=== PATIENT | female | born 1990 | race American Indian/Alaskan Native ===

== ENCOUNTER 2017-04-06 13:37 | Emergency (ER) | payer MEDICAID ==
[2017-04-06 14:24] LABS: Basophils % (Auto) 0.3 % (0.0-1.8); Eosinophils % (Auto) 0.2 % (0.0-4.3); Hematocrit 39.5 % (30.3-42.9); Hemoglobin 13.5 gm/dl (10.1-14.3); Mean Corpuscular HGB Conc 34 % (30-34); Mean Corpuscular Hemoglobin 31 pg (28-32); Mean Corpuscular Volume 90 fl (79-97); Platelet Count 180 K/mm3 (140-440); Red Blood Count 4.41 M/mm3 (3.65-5.03); Red Cell Distribution Width 14.5 % (13.2-15.2); White Blood Count 9.6 K/mm3 (4.5-11.0)
[2017-04-06 14:46] LABS: Alanine Aminotransferase 12 units/L (7-56); Albumin 3.9 g/dL (3.9-5); Albumin/Globulin Ratio 1.2 %; Alkaline Phosphatase 53 units/L (35-129); Anion Gap 15 mmol/L; BUN/Creatinine Ratio 18; Blood Urea Nitrogen 7 mg/dL (7-17); Calcium 8.7 mg/dL (8.4-10.2); Carbon Dioxide 24 mmol/L (22-30); Chloride 102.7 mmol/L (98-107); Glucose 105 mg/dL (65-100); Lipase 42 units/L (13-60); Potassium 3.7 mmol/L (3.6-5.0); Sodium 138 mmol/L (137-145); Total Protein 7.1 g/dL (6.3-8.2)
[2017-04-06 17:07] LABS: Bilirubin,Urine NEG (Negative); Blood,Urine NEG (Negative); Ketones,Urine TR mg/dL (Negative); Leukocyte Esterase,Urine NEG (Negative); Mucus,Urine FEW /HPF; Nitrite,Urine NEG (Negative); Protein,Urine <15 mg/dL mg/dL (Negative)
--- NOTE | 2017-04-06 19:15 | Emergency Department Report ---
HPI - General Chief Complaint: Abdominal Pain Time Seen by Provider: 04/06/17 18:57 - HPI HPI: Room 37 The patient is a 26-year-old female presenting with a chief complaint of abdominal pain. The patient states for the past 2-3 weeks she has had intermittent pain in the lower abdomen described as a pressure in nature. Patient admits to occasional dizziness associated 1 episode of vomiting. The patient states her last cycle occurred at the end of February which she's had vaginal spotting for the past 2-3 weeks. The patient states she took a test at home and it was negative Location: Lower abdomen Duration: 2-3 Weeks Quality: Pressure Severity: Moderate Modifying factors: [see above] Context: [see above] Mode of transportation: Unknown ED Past Medical Hx - Past Medical History Previous Medical History?: No - Surgical History Past Surgical History?: No - Family History Family history: no significant - Social History Smoking Status: Current Some Day Smoker Substance Use Type: Marijuana, Other - Medications Home Medications: Home Medications Medication Instructions Recorded Confirmed Last Taken Type metroNIDAZOLE [Flagyl TAB] 500 mg PO Q12H #20 tablet 07/15/14 Unknown Rx Vit Calc,Iron,Folic 1 each PO QDAY #90 tablet 04/06/17 Unknown Rx [ Vitamins] ED Review of Systems ROS: Stated complaint: ABDOMINAL PAIN/DIZZINESS Other details as noted in HPI Comment: All other systems reviewed and negative Constitutional: denies: chills, fever Eyes: denies: eye pain, eye discharge, vision change ENT: denies: ear pain, throat pain Respiratory: denies: cough, shortness of breath, wheezing Cardiovascular: denies: chest pain, palpitations Endocrine: no symptoms reported Gastrointestinal: abdominal pain, nausea, vomiting Genitourinary: abnormal menses Musculoskeletal: denies: back pain, joint swelling, arthralgia Skin: denies: rash, lesions Neurological: denies: headache, weakness, paresthesias Psychiatric: denies: anxiety, depression Hematological/Lymphatic: denies: easy bleeding, easy bruising Physical Exam - Physical Exam Vital Signs: Vital Signs 04/06/17 04/06/17 04/06/17 14:04 16:55 16:56 Temperature 98.7 F 97.7 F Pulse Rate 64 76 Respiratory 18 18 18 Rate Blood Pressure 100/59 Blood Pressure 111/53 [Left] O2 Sat by Pulse 100 98 98 Oximetry Physical Exam: GENERAL: The patient is well-developed well-nourished female lying on stretcher not appearing to be in acute distress. [] HEENT: Normocephalic. Atraumatic. Extraocular motions are intact. Patient has moist mucous membranes. NECK: Supple. Trachea midline CHEST/LUNGS: Clear to auscultation. There is no respiratory distress noted. HEART/CARDIOVASCULAR: Regular. There is no tachycardia. There is no gallop rub or murmur. ABDOMEN: Abdomen is soft, with mild discomfort to palpation in the right lower quadrant and suprapubic region. Patient has normal bowel sounds. There is no abdominal distention. SKIN: There is no rash. There is no edema. There is no diaphoresis. NEURO: The patient is awake, alert, and oriented. The patient is cooperative. The patient has normal speech MUSCULOSKELETAL: There is no evidence of acute injury. ED Course Vital Signs 04/06/17 04/06/17 04/06/17 14:04 16:55 16:56 Temperature 98.7 F 97.7 F Pulse Rate 64 76 Respiratory 18 18 18 Rate Blood Pressure 100/59 Blood Pressure 111/53 [Left] O2 Sat by Pulse 100 98 98 Oximetry ED Medical Decision Making - Lab Data Result diagrams: 04/06/17 14:14 04/06/17 14:14 Laboratory Tests 04/06/17 04/06/17 04/06/17 14:14 14:14 14:14 WBC 9.6 RBC 4.41 Hgb 13.5 Hct 39.5 MCV 90 MCH 31 MCHC 34 RDW 14.5 Plt Count 180 Lymph % (Auto) 18.9 Bay % (Auto) 3.8 Eos % (Auto) 0.2 Baso % (Auto) 0.3 Lymph # 1.8 Bay # 0.4 Eos # 0.0 Baso # 0.0 Seg Neutrophils % 76.8 H Seg Neutrophils # 7.4 Sodium 138 Potassium 3.7 Chloride 102.7 Carbon Dioxide 24 Anion Gap 15 BUN 7 Creatinine 0.4 L Estimated GFR > 60 BUN/Creatinine Ratio 18 Glucose 105 H Calcium 8.7 Total Bilirubin 0.40 AST 18 ALT 12 Alkaline Phosphatase 53 Total Protein 7.1 Albumin 3.9 Albumin/Globulin Ratio 1.2 Lipase 42 HCG, Quant 08921 H Urine Color Urine Turbidity Urine pH Ur Specific [place] Urine Protein Urine Glucose (UA) Urine Ketones Urine Blood Urine Nitrite Ur Reducing Substances Urine Bilirubin Urine Ictotest Urine Urobilinogen Ur Leukocyte Esterase Urine WBC (Auto) Urine RBC (Auto) U Epithel Cells (Auto) Urine Mucus Urine HCG, Qual 04/06/17 16:55 WBC RBC Hgb Hct MCV MCH MCHC RDW Plt Count Lymph % (Auto) Bay % (Auto) Eos % (Auto) Baso % (Auto) Lymph # Bay # Eos # Baso # Seg Neutrophils % Seg Neutrophils # Sodium Potassium Chloride Carbon Dioxide Anion Gap BUN Creatinine Estimated GFR BUN/Creatinine Ratio Glucose Calcium Total Bilirubin AST ALT Alkaline Phosphatase Total Protein Albumin Albumin/Globulin Ratio Lipase HCG, Quant Urine Color Yellow Urine Turbidity Clear Urine pH 6.0 Ur Specific [place] 1.023 Urine Protein <15 mg/dl Urine Glucose (UA) Neg Urine Ketones Tr Urine Blood Neg Urine Nitrite Neg Ur Reducing Substances Not Reportable Urine Bilirubin Neg Urine Ictotest Not Reportable Urine Urobilinogen 2.0 Ur Leukocyte Esterase Neg Urine WBC (Auto) 1.0 Urine RBC (Auto) 2.0 U Epithel Cells (Auto) 1.0 Urine Mucus Few Urine HCG, Qual Positive A - Radiology Data Radiology results: report reviewed (pelvic ultrasound), image reviewed (pelvic ultrasound) Pelvic ultrasound (read by radiologist)- heart rate 161 bpm. Single intrauterine gestation at 14 weeks 1 day. EDC 10/04/2017 - Differential Diagnosis , ectopic , threatened , spontaneous , mi Critical care attestation.: If time is entered above; I have spent that time in minutes in the direct care of this critically ill patient, excluding procedure time. ED Disposition Clinical Impression: Threatened Disposition: DC-01 TO HOME OR SELFCARE Is pt being admited?: No Does the pt Need Aspirin: No Condition: Stable Instructions: Abdominal Pain (ED), Threatened Miscarriage (ED) Additional Instructions: Return to the emergency department immediately should you develop worsening symptoms, fever, inability to tolerate food or liquid or any other concerns. Prescriptions: Vit Calc,Iron,Folic [ Vitamins] 1 each PO QDAY #90 tablet Referrals: [facility] [Provider Group] - [place] Time of Disposition: 21:59
--- NOTE | 2017-04-06 21:54 | Ultrasound Report ---
FINAL REPORT PROCEDURE: US OB \T\gt; = 14 WEEKS FETUS TECHNIQUE: Real-time transabdominal sonography of the uterus, placenta, amniotic fluid, adnexa, and fetus was performed with image documentation. Measurements were obtained to determine age/size. M-mode Doppler was used to document heartbeat. CPT 47394 HISTORY: abdominal pain, COMPARISON: No prior studies are available for comparison. FINDINGS: ADDITIONAL GESTATION: None. GENERAL: IUP: Single living intrauterine . Position: Cephalic Placental position: Anterior grade 0, without previa. Amniotic fluid volume: Normal. MATERNAL: Uterus: Within normal limits. Cervical length: 3.9 cm. Internal Os: Closed. FETUS: Heart rate and rhythm: 161 BPM, Regular. MEASUREMENTS: BPD: 2.5 centimeters consistent 14 weeks 2 days HC: 9.6 consistent 14 week 3 day AC: 8.5 consistent 14 weeks 6 days FL: 1.3 consistent 13 weeks 6 days Mean Gestational Age: 14 week 1 day Ratio biometry: HC AC ratio 1.1. Cephalic index 82.2 FL BPD 52.6 FL HC 13.7 FL AC 15.4 Estimated Due Date (earliest scan): 10/04/2017 IMPRESSION: Single intrauterine gestation at 14 week 1 day. Estimated due date: 10/04/2017.
--- NOTE | 2017-04-06 21:57 | Ultrasound Report ---
FINAL REPORT PROCEDURE: US OB TRANSVAGINAL TECHNIQUE: Real-time transvaginal sonography of the uterus, placenta, amniotic fluid, adnexa, and fetus was performed with image documentation. Measurements were obtained to determine age/size. M-mode Doppler was used to document heartbeat. CPT 16966 HISTORY: abdominal pain, COMPARISON: Complete OB ultrasound today FINDINGS: Single viable IUP 14 week 1 day age. Heart rate 161 beats per minute. Transvaginal approach used. No visible adnexal masses depicted Estimated delivery date: 10/04/2017 Comment: Complete anatomic survey at 18-20 weeks suggested. IMPRESSION: 1. Single living intrauterine gestation at approximately 14 week 1 day 2. EDC by US 10/04/2017.
[2017-04-06 22:05] VITALS: BP 125/99
== END 2017-04-06 22:07 | disposition home or self-care (01) ==
LOC: ED 13:37
DX: O20.0 Threatened abortion (principal); F17.200 Nicotine dependence, unspecified, uncomplicated; F12.10 Cannabis abuse, uncomplicated
CPT/HCPCS: 36415; 76805; 76817; 80053; 81001; 81025; 83690; 84702; 85025

== ENCOUNTER 2021-01-03 15:21 | Emergency (ER) | payer OTHER, MEDICAID ==
--- NOTE | 2021-01-03 16:24 | Emergency Department Report ---
Blank Doc - Documentation Documentation: 30-year-old female that presents with RLQ pain with nausea. Denies any vomiti ng. Exam: RLQ tenderness 1- This is a initial triage assessment/medical screening only. Full assessment and work-up will be completed once the patient is in proper hospital gown, ED bed and in a private room setting. This initial assessment/diagnostic orders/clinical plan/ treatment(s) is/are subject to change based on pt's health status, clinical progression and re-assessment by fellow clinical providers in the ED. Further treatment and workup at subsequent clinical providers discretion. Patient/guardians urged not to elope from ED as their condition may be serious if not clinically assessed and managed. 2-labs/UA
[2021-01-03 17:30] LABS: Basophils % (Auto) 0.3 % (0.0-1.8); Eosinophils % (Auto) 0.3 % (0.0-4.3); Hematocrit 42.8 % (30.3-42.9); Hemoglobin 13.8 gm/dl (10.1-14.3); Lymphocytes # (Auto) 2.6 K/mm3 (1.2-5.4); Mean Corpuscular HGB Conc 32 % (30-34); Mean Corpuscular Volume 89 fl (79-97); Monocytes # (Auto) 0.4 K/mm3 (0.0-0.8); Monocytes % (Auto) 5.1 % (0.0-7.3); Platelet Count 251 K/mm3 (140-440); Red Blood Count 4.78 M/mm3 (3.65-5.03); Red Cell Distribution Width 15.4 % (13.2-15.2)
[2021-01-03 17:49] LABS: Alanine Aminotransferase 12 units/L (7-56); Albumin 4.6 g/dL (3.9-5); Blood Urea Nitrogen 10 mg/dL (7-17); Calcium 9.5 mg/dL (8.4-10.2); Hemolysis Index 2
[2021-01-03 18:02] LABS: BUN/Creatinine Ratio 17
--- NOTE | 2021-01-04 01:02 | Cat Scan Report ---
CT ABDOMEN AND PELVIS WITH CONTRAST INDICATION / CLINICAL INFORMATION: RLQ abdominal pain. TECHNIQUE: Axial CT images were obtained through the abdomen and pelvis after 75 cc of Omnipaque [address] scans at this location are performed using CT dose reduction for ALARA by means of automated exposure control. COMPARISON: None available. FINDINGS: LOWER CHEST: No significant abnormality. LIVER: No significant abnormality. GALLBLADDER: No significant abnormality. BILE DUCTS: No significant abnormality. PANCREAS: No significant abnormality. SPLEEN: No significant abnormality. ADRENALS: No significant abnormality. RIGHT KIDNEY / URETER: No significant abnormality. LEFT KIDNEY / URETER: No significant abnormality. STOMACH / SMALL BOWEL: No significant abnormality. COLON: No significant abnormality. APPENDIX: Not visualized. PERITONEUM: No free fluid. No free air. No fluid collection. LYMPH NODES: No significant adenopathy. AORTA / ARTERIES: No significant abnormality. IVC / VEINS: No significant abnormality. URINARY BLADDER: No significant abnormality. REPRODUCTIVE ORGANS: No significant abnormality. There is a small cyst in the left ovary. ADDITIONAL FINDINGS: None. SKELETAL SYSTEM: No significant abnormality. IMPRESSION: 1. There is no obstruction, inflammation, or free air. There are no abnormal fluid collections. 2. The appendix is not visualized. Signer Name: Joe Baker MD Signed: 01/04/2021 12:57 AM Workstation Name: [id number]
--- NOTE | 2021-01-04 02:16 | Emergency Department Report ---
HPI - General Chief Complaint: Abdominal Pain Time Seen by Provider: 01/03/21 16:23 - HPI HPI: 30-year-old female presents complaining of bilateral lower abdominal pain since yesterday. She says that it has been intermittent lasting seconds to minutes at a time. It feels similar to menstrual cramping but her LMP was on December 21. It occurs on either side or in the middle and there is no pattern to it. She does say that she has had some discomfort with urination over that period of time. She denies any significant vaginal discharge, pain, lesions, or bleeding. She also denies any associated fever/chills, headache, vision change, back pain, chest pain, shortness of breath, nausea/vomiting, or any other complaints. There are no known aggravating or alleviating factors. She has not tried anything for her symptoms. ED Past Medical Hx - Past Medical History Previous Medical History?: No - Surgical History Past Surgical History?: No - Social History Smoking Status: Current Every Day Smoker Substance Use Type: Marijuana - Medications Home Medications: Home Medications Medication Instructions Recorded Confirmed Last Taken Type metroNIDAZOLE [Flagyl TAB] 500 mg PO Q12H #20 tablet 07/15/14 Unknown Rx Vit Calc,Iron,Folic 1 each PO QDAY #90 tablet 04/06/17 Unknown Rx [ Vitamins] ED Review of Systems ROS: Stated complaint: LOWER ABDOMINAL PAIN Other details as noted in HPI Constitutional: denies: chills, fever Eyes: denies: eye pain, vision change ENT: denies: throat pain, congestion Respiratory: denies: cough, shortness of breath Cardiovascular: denies: chest pain, palpitations, syncope Gastrointestinal: abdominal pain. denies: nausea, vomiting, diarrhea, constipation Genitourinary: dysuria, frequency. denies: discharge, abnormal menses Musculoskeletal: denies: back pain, joint swelling Skin: denies: rash Neurological: denies: headache, weakness, numbness Physical Exam - Physical Exam Vital Signs: Vital Signs 01/03/21 01/03/21 16:19 16:20 Temperature 97.9 F 97.9 F Pulse Rate 60 60 Respiratory 18 18 Rate Blood Pressure 106/64 Blood Pressure 106/64 [Right] O2 Sat by Pulse 100 100 Oximetry Physical Exam: GENERAL: Well-developed skinny young female. No acute distress HEAD: Normocephalic. No obvious signs of trauma. ENT: Moist mucous membranes. EYES: Extraocular movements are intact. Pupils are equal round and reactive to light bilaterally NECK: Supple. Full ROM is intact. Trachea is midline. LUNGS: Nonlabored breathing. Equal chest rise bilaterally. Clear to auscultation bilaterally. CARDIOVASCULAR: Regular rate and rhythm. No murmurs or rubs. VASCULAR: Cap refill < 2 seconds ABDOMEN: Abdomen is soft and nondistended. There is no significant tenderness, guarding or rebound. SKIN: Skin is warm and dry NEURO: Patient is awake, alert, and oriented. tobacco checkout clerk II-XII grossly intact. No focal deficits. Normal motor and sensory exam throughout. Normal speech. MUSCULOSKELETAL: No obvious deformities. No significant tenderness. Normal ROM throughout. BACK/SPINE: No midline tenderness or step-offs of the C/T/L spine. No costovertebral angle tenderness. ED Course Vital Signs 01/03/21 01/03/21 16:19 16:20 Temperature 97.9 F 97.9 F Pulse Rate 60 60 Respiratory 18 18 Rate Blood Pressure 106/64 Blood Pressure 106/64 [Right] O2 Sat by Pulse 100 100 Oximetry ED Medical Decision Making - Lab Data Result diagrams: 01/03/21 17:04 01/03/21 17:04 Lab Results 01/03/21 01/03/21 01/03/21 Range/Units 17:04 17:04 17:04 WBC 8.3 (4.5-11.0) K/mm3 RBC 4.78 (3.65-5.03) M/mm3 Hgb 13.8 (10.1-14.3) gm/dl Hct 42.8 (30.3-42.9) % MCV 89 (79-97) fl MCH 29 (28-32) pg MCHC 32 (30-34) % RDW 15.4 H (13.2-15.2) % Plt Count 251 (140-440) K/mm3 Lymph % (Auto) 31.0 (13.4-35.0) % [place] % (Auto) 5.1 (0.0-7.3) % Eos % (Auto) 0.3 (0.0-4.3) % Baso % (Auto) 0.3 (0.0-1.8) % Lymph # (Auto) 2.6 (1.2-5.4) K/mm3 [place] # (Auto) 0.4 (0.0-0.8) K/mm3 Eos # (Auto) 0.0 (0.0-0.4) K/mm3 Baso # (Auto) 0.0 (0.0-0.1) K/mm3 Seg Neutrophils % 63.3 (40.0-70.0) % Seg Neutrophils # 5.2 (1.8-7.7) K/mm3 Sodium 138 (137-145) mmol/L Potassium 4.2 (3.6-5.0) mmol/L Chloride 102.1 (98-107) mmol/L Carbon Dioxide 29 (22-30) mmol/L Anion Gap 11 mmol/L BUN 10 (7-17) mg/dL Creatinine 0.6 (0.6-1.2) mg/dL Estimated GFR > 60 ml/min BUN/Creatinine Ratio 17 % Glucose 119 H (65-100) mg/dL Calcium 9.5 (8.4-10.2) mg/dL Total Bilirubin 0.40 (0.1-1.2) mg/dL AST 20 (5-40) units/L ALT 12 (7-56) units/L Alkaline Phosphatase 77 (35-129) units/L Total Protein 7.3 (6.3-8.2) g/dL Albumin 4.6 (3.9-5) g/dL Albumin/Globulin Ratio 1.7 % Lipase 36 (13-60) units/L HCG, Qual Negative (Negative) Urine Color (Yellow) Urine Turbidity (Clear) Urine pH (5.0-7.0) Ur Specific [place] (1.003-1.030) Urine Protein (Negative) mg/dL Urine Glucose (UA) (Negative) mg/dL Urine Ketones (Negative) mg/dL Urine Blood (Negative) Urine Nitrite (Negative) Urine Bilirubin (Negative) Urine Urobilinogen (<2.0) mg/dL Ur Leukocyte Esterase (Negative) Urine WBC (Auto) (0.0-6.0) /HPF Urine RBC (Auto) (0.0-6.0) /HPF U Epithel Cells (Auto) (0-13.0) /HPF Urine Bacteria (Auto) (Negative) /HPF Urine Mucus /HPF 01/04/21 Range/Units 02:12 WBC (4.5-11.0) K/mm3 RBC (3.65-5.03) M/mm3 Hgb (10.1-14.3) gm/dl Hct (30.3-42.9) % MCV (79-97) fl MCH (28-32) pg MCHC (30-34) % RDW (13.2-15.2) % Plt Count (140-440) K/mm3 Lymph % (Auto) (13.4-35.0) % [place] % (Auto) (0.0-7.3) % Eos % (Auto) (0.0-4.3) % Baso % (Auto) (0.0-1.8) % Lymph # (Auto) (1.2-5.4) K/mm3 [place] # (Auto) (0.0-0.8) K/mm3 Eos # (Auto) (0.0-0.4) K/mm3 Baso # (Auto) (0.0-0.1) K/mm3 Seg Neutrophils % (40.0-70.0) % Seg Neutrophils # (1.8-7.7) K/mm3 Sodium (137-145) mmol/L Potassium (3.6-5.0) mmol/L Chloride (98-107) mmol/L Carbon Dioxide (22-30) mmol/L Anion Gap mmol/L BUN (7-17) mg/dL Creatinine (0.6-1.2) mg/dL Estimated GFR ml/min BUN/Creatinine Ratio % Glucose (65-100) mg/dL Calcium (8.4-10.2) mg/dL Total Bilirubin (0.1-1.2) mg/dL AST (5-40) units/L ALT (7-56) units/L Alkaline Phosphatase (35-129) units/L Total Protein (6.3-8.2) g/dL Albumin (3.9-5) g/dL Albumin/Globulin Ratio % Lipase (13-60) units/L HCG, Qual (Negative) Urine Color Yellow (Yellow) Urine Turbidity Clear (Clear) Urine pH 5.0 (5.0-7.0) Ur Specific [place] 1.060 H (1.003-1.030) Urine Protein <15 mg/dl (Negative) mg/dL Urine Glucose (UA) Neg (Negative) mg/dL Urine Ketones Neg (Negative) mg/dL Urine Blood Neg (Negative) Urine Nitrite Neg (Negative) Urine Bilirubin Neg (Negative) Urine Urobilinogen < 2.0 (<2.0) mg/dL Ur Leukocyte Esterase Neg (Negative) Urine WBC (Auto) < 1.0 (0.0-6.0) /HPF Urine RBC (Auto) 2.0 (0.0-6.0) /HPF U Epithel Cells (Auto) 2.0 (0-13.0) /HPF Urine Bacteria (Auto) 1+ (Negative) /HPF Urine Mucus 1+ /HPF - Radiology Data CT ABDOMEN AND PELVIS WITH CONTRAST INDICATION / CLINICAL INFORMATION: RLQ abdominal pain. TECHNIQUE: Axial CT images were obtained through the abdomen and pelvis after 75 cc of Omnipaque [address] scans at this location are performed using CT dose reduction for ALARA by means of automated exposure control. COMPARISON: None available. FINDINGS: LOWER CHEST: No significant abnormality. LIVER: No significant abnormality. GALLBLADDER: No sign ificant abnormality. BILE DUCTS: No significant abnormality. PANCREAS: No significant abnormality. SPLEEN: No significant abnormality. ADRENALS: No significant abnormality. RIGHT KIDNEY / URETER: No significant abnormality. LEFT KIDNEY / URETER: No significant abnormality. STOMACH / SMALL BOWEL: No significant abnormality. COLON: No significant abnormality. APPENDIX: Not visualized. PERITONEUM: No free fluid. No free air. No fluid collection. LYMPH NODES: No significant adenopathy. AORTA / ARTERIES: No significant abnormality. IVC / VEINS: No significant abnormality. URINARY BLADDER: No significant abnormality. REPRODUCTIVE ORGANS: No significant abnormality. There is a small cyst in the left ovary. ADDITIONAL FINDINGS: None. SKELETAL SYSTEM: No significant abnormality. IMPRESSION: 1. There is no obstruction, inflammation, or free air. There are no abnormal fluid collections. 2. The appendix is not visualized. Signer Name: Joe Baker MD Signed: 01/03/2021 11:57 PM Workstation Name: [id number] - Medical Decision Making 30-year-old female with no known past medical history presenting with intermittent bilateral lower abdominal pain lasting seconds to minutes over the past day. She also says she has had some discomfort with urination. She denies vaginal discharge, vaginal bleeding, or back pain. She is afebrile and with normal vital signs. Her LMP was on the fifth of this month, approximately 2 weeks ago. The patient's physical exam reveals moist mucous membranes and no abdominal tenderness. She has no CVA tenderness. The remainder of her exam is within normal limits. Labs were drawn in triage and reveal no significant leukocytosis or anemia. Kidney function is normal and there are no significant electrolyte abnormalities. test is normal. Lipase is normal. Urinalysis is still pending but the patient has given us a urine sample. Patient underwent CT of the abdomen pelvis which did not reveal any acute abnormalities including no significant findings of the adnexa although there is a small left ovarian cyst. She has undergone extensive work-up we will plan to follow-up the urine and perform a pelvic exam for further assessment. On repeat assessment at 3:30 AM, the patient still has no pain. Urinalysis has returned and reveals no evidence of infection. At 4:45 AM, with the nurse Val present as a train conductor, I performed a pelvic examination which reveals normal external female genitalia. Speculum exam reveals physiologic discharge and the os is closed. Bimanual exam reveals no adnexal masses or tenderness. There is no cervical motion tenderness. She remains asymptomatic at this time. I spoke with the patient about the fact that given her pain started 2 weeks after her LMP, it could be due to mittelschmerz, although this is not a definitive diagnosis. I also explained that on the CT scan of her abdomen, her appendix was not visualized. I explained that appendicitis is not ruled out at this time and should she continue to have pain or other symptoms she should urgently see her doctor or return to the emergency department. She expressed understanding and agreement with the plan for discharge home. Critical care attestation.: If time is entered above; I have spent that time in minutes in the direct care of this critically ill patient, excluding procedure time. ED Disposition Clinical Impression: Lower abdominal pain Disposition: DC-01 TO HOME OR SELFCARE Is pt being admited?: No Condition: Stable Instructions: Abdominal Pain (ED), Mittelschmerz, [id number], Abdominal Pain, Adult, Pain Without a Known Cause Additional Instructions: The CT scan of your abdomen did not visualize her appendix. Should you continue to have pain please see your doctor or return to the emergency department. Please return to the emergency department should you develop worsening symptoms, inability to keep down any liquids, or any other new concerns Referrals: [facility] [Provider Group] - 3-5 Days
[2021-01-04 03:25] LABS: Bacteria,Urine 1+ /HPF (Negative); Bilirubin,Urine NEG (Negative); Blood,Urine NEG (Negative); Color,Urine Yellow (Yellow); Mucus,Urine 1+ /HPF; Protein,Urine <15 mg/dL mg/dL (Negative); Urobilinogen,Urine < 2.0 mg/dL (<2.0); WBC,Urine < 1.0 /HPF (0.0-6.0)
[2021-01-04 04:38] VITALS: BP 99/50
== END 2021-01-04 05:23 | disposition home or self-care (01) ==
LOC: ED 15:21
DX: R10.31 Right lower quadrant pain (principal); R10.32 Left lower quadrant pain; F17.200 Nicotine dependence, unspecified, uncomplicated; F12.90 Cannabis use, unspecified, uncomplicated; Z79.899 Other long term (current) drug therapy
CPT/HCPCS: 36415; 74177; 80053; 81001; 83690; 84703; 85025; 99284; Q9967